=== PATIENT | female | born 1940 | race Caucasian/White ===

== ENCOUNTER 2016-12-12 13:52 | Inpatient (IN) | payer OTHER, MEDICAID ==
[~2016-12-12] VITALS: Ht 149.9 cm; Wt 108.0 kg
--- NOTE | ~2016-12-12 | 2DMMODE ---
[facility] [address] [place] [address] 2 D/M-MODE ECHOCARDIOGRAM Name: EZEKIELRADHA FALLON Room #: 215-P ADM IN M.R.#: [id number] Admission: 12/12/16 Attend Phys: Jian Madrid, Discharge: Date of : 38 Date of Service: 12/13/16 0920 Report #: [id number] THIS REPORT FOR: //name// APPROVED REPORT Study performed: 12/13/2016 08:36:48 EXAM: Comprehensive 2D, Doppler, and color-flow Echocardiogram Patient Location: Echo lab Room #: [facility] Status: routine BSA: 1.99 HR: 82 bpm BP: 152/68 mmHg Rhythm: NSR Other Information Study Quality: Adequate Indications Short of breath, CHF. Hx: CHF, HTN, HLP, morbid obesity 2D Dimensions RVDd: 41.08 mm LVEF(%): 68.25 (>50%) IVSd: 10.95 (7-11mm) LVOT Diam: 20.45 (18-24mm) LVDd: 44.60 mm PWd: 10.89 (7-11mm) Ascending Ao: 34.22 (22-36mm) LVDs: 27.69 (25-40mm) Aortic Root: 32.12 mm Walker's LVEF: 68.25 % Volumes Left Atrial Volume (Systole) Single Plane 4CH: 80.63 mL Single Plane 2CH: 54.34 mL LA ESV Index: 35.00 mL/m2 Aortic Valve AoV Peak Vincenzo.: 1.79 m/s AO Peak Gr.: 12.88 mmHg LVOT Max P.64 mmHg LVOT Max V: 1.38 m/s TERI Vmax: 2.53 cm2 Mitral Valve E/A Ratio: 0.8 MV Decel. Time: 216.01 ms [facility] [place] [address] 2 D/M-MODE ECHOCARDIOGRAM Name: RADHA FALCON Room #: 215-P [facility] IN ..#: [id number] Admission: 12/12/16 Attend Phys: Jian Madrid, Discharge: Date of : 38 Date of Service: 12/13/16 0920 Report #: [id number] E Max Vincenzo.: 1.00 m/s MV A Vincenzo.: 1.22 m/s MV PHT: 62.64 ms IVRT: 50.75 ms Pulmonary Valve PV Peak Vincenzo.: 1.50 m/s PV Peak Gr.: 9.04 mmHg Pulmonary Vein P Vein S: 0.61 m/s P Vein A: 0.32 m/s P Vein D: 0.56 m/s P Vein A Dur.: 133.8 msec P Vein S/D Ratio: 1.09 Tricuspid Valve TR Peak Vincenzo.: 4.09 m/s RAP Estimate: 5.00 mmHg TR Peak Gr.: 66.87 mmHg PA Pressure: 72.00 mmHg Left Ventricle The left ventricle is normal size. There is normal LV segmental wall motion. There is normal left ventricular wall thickness. Left ventricular systolic function is normal. LVEF is 60-65%. Mild diastolic dysfunction is present (impaired relaxation pattern). Right Ventricle Right ventricle is at the upper limits of normal. The right ventricular systolic function is normal. Atria Left atrium is mildly dilated. Right atrium is at the upper limits of normal. Aortic Valve The Aortic valve is mildly sclerotic. Trace aortic regurgitation. There is no aortic valvular stenosis. Mitral Valve The mitral valve is normal in structure. Mild mitral regurgitation. Tricuspid Valve The tricuspid valve is normal in structure. Moderate tricuspid regurgitation. Estimated PAP is 70-75mmHg[place] [address] 2 D/M-MODE ECHOCARDIOGRAM Name: RADHA FALCON Room #: 215-P [facility] IN [facility]#: [id number] Admission: 12/12/16 Attend Phys: Jian Madrid, Discharge: Date of : 38 Date of Service: 12/13/16 0920 Report #: [id number] The pulmonary valve is normal in structure. Mild pulmonic regurgitation. Great Vessels The aortic root is normal in size. The ascending aorta is normal in size. IVC is normal in size and collapses >50% with inspiration. Pericardium There is no pericardial effusion. <Conclusion> The left ventricle is normal size. Left ventricular systolic function is normal. Mild diastolic dysfunction is present (impaired relaxation pattern). Left atrium is mildly dilated. The Aortic valve is mildly sclerotic. Mild mitral regurgitation. Moderate tricuspid regurgitation. Estimated PAP is 70-75mmHg. <ELECTRONICALLY SIGNED> By: Mikey Kimbrough MD 12/13/16919 9 9 Mikey Kimbrough MD /INF
--- NOTE | ~2016-12-12 | HC ---
[facility] [place] [address] CONSULTATION Name: RADHA FALCON Room #: 215-P ADM IN M.R.#: [id number] Admission: 12/12/16 Attend Phys: Jian Madrid MD Discharge: Date of : 38 Report #: [id number] THIS REPORT FOR: //name// CC: Jian Madrid DATE OF SERVICE: 12/12/2016 REASON FOR CONSULTATION: Dyspnea. IMPRESSION: 1. Dyspnea, question etiology. 2. Elevated D-dimer. 3. Hypertension. 4. GERD. 5. Obesity. 6. NIOC. 7. Question history of asthma. PLAN: IV azithromycin. She has multiple allergies. We will continue aerosol therapy. We will try her on CPAP, see if diuresis helps, check VQ venous Dopplers, may check a high-resolution CT chest and may add corticosteroids in the morning. HISTORY OF PRESENT ILLNESS: A 76-year-old female admitted with progressive shortness of breath, cough and some palpitations. She relates this is how she normally feels, however, recently placed on aerosol by Dr. Merrill. Denies chest pain, hemoptysis or hematemesis. PAST MEDICAL HISTORY: ALLERGIES: POLLEN, MOLD, AEROSOLS, MORPHINE, CEPHALEXIN, FENTANYL, LEVAQUIN, MEPERIDINE, QUINOLONES, DIAZEPAM AND SULFA. HOME MEDICATIONS: Included Flonase, Dexilant, Lasix, metformin, potassium, pravastatin, Zoloft, Amitiza, labetalol, Symbicort, spironolactone, hydrocodone, oxygen, ____, Incruse. PAST MEDICAL HISTORY: Includes edema and diastolic heart failure. PAST SURGICAL HISTORY: Include cholecystectomy, hysterectomy, bladder suspension and cataract extraction. FAMILY HISTORY: Coronary artery disease. SOCIAL HISTORY: Negative tobacco. Negative significant ETOH. [facility] [address] [place] [address] CONSULTATION Name: RADHA FALCON Room #: 215-P [facility] IN [facility].#: [id number] Admission: 12/12/16 Attend Phys: Jian Madrid MD Discharge: Date of : 38 Report #: [id number] REVIEW OF SYSTEMS: Include difficulty hearing, shortness of breath, wheeze and phlegm. No hemoptysis and no hematemesis. Positive back pain. No history of DVT or PE. History of daytime somnolence and snoring. PHYSICAL EXAMINATION: VITAL SIGNS: Temperature 98.4, pulse 81, respirations 18 and BP 162/81. EYES: Negative icterus. NECK: Negative JVD. Posterior pharynx crowded. Lungs grossly showed a few crackles, no wheeze or rhonchi. HEART: Regular. ABDOMEN: Bowel sounds present. EXTREMITIES: Shows positive edema and chronic changes and has seen a accounting specialist for these. NEUROLOGIC: Alert and oriented. LABORATORY DATA: D-dimer 0.56. ProBNP 636. White count 11, hemoglobin 10.2, MCV 82 and platelets 246. BUN 16 and creatinine 0.7. SGPT 24. By: [id number] Terese Landon MD /nt
--- NOTE | ~2016-12-12 | HC ---
[facility] [place] [address] CONSULTATION Name: RADHA FALCON Room #: 427-P ADM IN M.R.#: [id number] Admission: 12/12/16 Attend Phys: Jian Madrid MD Discharge: Date of : 38 Report #: [id number] THIS REPORT FOR: //name// CC: Jian Madrid DATE OF SERVICE: 12/18/2016 HISTORY OF PRESENT ILLNESS: The patient is a 76-year-old female admitted with increased shortness of breath. She was noted to have acute diastolic congestive heart failure on chronic heart failure. She has been diagnosed with pulmonary hypertension. She has obesity. She has depression with restarting medications. She has sleep apnea. Pulmonary medicine is following. She does have generalized weakness and debilitation. We are seeing her in rehabilitation medicine consultation. PAST MEDICAL HISTORY: Includes bilateral hip replacements fusion x 3, lumbar plate. Cervical fusion, decompressive laminectomy, hysterectomy, cholecystectomy, hypertension, bladder suspension, spinal stenosis, osteoporosis, depression, anxiety, fibromyalgia, neuropathy, O2 at 2 liters, GERD. PAST SURGICAL HISTORY: As well delineated above. MEDICATIONS: Multiple medications are as listed. HABITS: No history of tobacco or alcohol abuse. FAMILY HISTORY: Noncontributory. SOCIAL HISTORY: Lives in an assisted living facility. Used a 4-wheeled walker, was on 2 liters nasal prong O2. She ambulated to and from the dining area. REVIEW OF SYSTEMS: Did not offer any current complaints of chest pain, shortness of breath or abdominal discomfort. She feels generalized weakness with her hospitalization. PHYSICAL EXAMINATION: GENERAL: Obese 76-year-old white female in no obvious distress. She is on nasal prong O2. VITAL SIGNS: Temperature 97.8, pulse 74, respirations 18, blood pressure 140/64. HEENT: Facies are symmetric. EXTREMITIES: Functional range of motion of the upper extremities, strength is grade 4-/5. Lower extremities, no focal calf swelling, functional range of motion and strength is a grade 4-/5. She is standby assistance with sit to stand. She ambulated 100 feet with a 4-wheeled walker with standby assistance. [address] [address] CONSULTATION Name: RADHA FALCON Room #: 427-P [facility] IN .R.#: [id number] Admission: 12/12/16 Attend Phys: Jian Madrid MD Discharge: Date of : 38 Report #: [id number] Physical therapy indicated that she was safe for home from physical therapy standpoint when medically cleared. The recommendations are for home with home health. ASSESSMENT: A 76-year-old white female with the following problem list: 1. Medical complexity with generalized debilitation. 2. Acute on chronic diastolic congestive heart failure. 3. Pulmonary hypertension. 4. Obesity. 5. Chronic back pain. 6. Depression. 7. Obstructive sleep apnea. 8. Bilateral hip replacements in the past. 9. History of cervical and lumbar surgeries. 10. Fibromyalgia. 11. History of neuropathy. 12. O2 at 2 liters at night, premorbidly. PLAN: She did well in physical therapy yesterday ambulating 100 feet standby assistance with indication that she would be safe for home from physical therapy standpoint when medically cleared. She seems somewhat hesitant in this regard and so occupational therapy input is continuing. Consider a short retirement facility stay versus home with home health care with case management involved. I did not see that she would meet criteria for an acute 5 North inpatient rehabilitation stay. Thank you for asking us to assist in this patient's care. By: [id number] Ishan Garcia MD /[facility]
--- NOTE | ~2016-12-12 | EKG ---
[address] [address] ELECTROCARDIOGRAM REPORT Name: RADHA FALCON Room #: 215- ADM IN M.R.#: [id number] Admission: 12/12/16 Attend Phys: Jian Madrid MD Discharge: Date of : 38 Report #: [id number] THIS REPORT FOR: //name// [facility] Test Date: 2016-12-12 Test Time: 15:53:08 Pat Name: RADHA FALCON Department: Room: 215 P Gender: F [employer]: Dylan PACHECO : 1940 Requested By: Jian Madrid Order Number: [id number] MD: Ray Christian Measurements Intervals [place] Rate: 78 P: 44 AR: 170 QRS: 43 QRSD: 88 T: 42 QT: 375 QTc: 428 Interpretive Statements Sinus rhythm Ventricular premature complex Compared to ECG 11/16/2014 08:24:49 Ventricular premature complex(es) now present Electronically Signed On 12-13-2016 9:06:10 CDT by Ray Christian [email or web address] <ELECTRONICALLY SIGNED> By: Ray Christian MD, [facility] 12/13/16 0906 [id number] [id number] Ray Christian MD, [facility] /EPI
[~2016-12-12 13:52] MED LIST: ACETAMINOPHEN325 M1 PO; ACETAMINOPHEN650 M5 PO; ACIDOPHILUS1 EAC3 PO; ACIDOPHILUS1 EACH PO; ADULT WAL-100 MG/5 M PO; ALAVERT10 MG PO; ALDACTONE50 MG PO; ALL DAY ALLERGY10 M2 PO; ALPRAZOLAM PO; ALPRAZOLAM1 M1 PO; AMITIZA 24 MCG24 MC1; AMITIZA 24 MCG24 MC1 PO; ANTI ITCH; ANUSOL-HC21 GM; APAP500 PO; B12INJ; BIOTENE DRY MO237 ML; BISAC-EVAC10 MG; BISAC-EVAC10 MG RECTAL; BISACODYL SUPP10 MG RE; CEFDINIR300 MG PO; CELEBREX 200 M200 MG PO; CETAPHIL MOIST473 ML; CETAPHIL TP; CETAPHIL473 ML; CHILDREN'S ALLE10 MG PO; CITRATE OF MAG296 ML; COLACE 100 MG100 MG PO; COLACE100 MG PO; DENAVIR1.5 GM PO; DESYREL100 MG PO; DESYREL50 MG PO; DOCUSATE SODIU100 MG PO; ERYPED 200200 MG/51 PO; FISH OIL 1,0001 EAC5 PO; FISHOIL PO; FLONASE 0.05%50 MCG NASAL; FLONASE16 GM NS; FUROSEMIDE 40 M40 M1 PO; FUROSEMIDE 80 M80 MG PO; GENTEAL GEL DRO15 ML OP; GENTEAL GEL DRO15 ML OPHTHALMIC; GENTEAL PM OIN3.5 GM; GENTEAL PM OIN3.5 GM OP; GLYCOLAX POWDER17 G1 PO; HYDRALAZINE 2525 M1 PO; HYDROCODON-ACE1 EAC5 PO; HYDROCODON-ACE1 EAC7 PO; IBUPROFEN 200200 M1 PO; IBUPROFEN200 M2 PO; K-DUR 20 MEQ T20 MEQ PO; KLOR-CON 1010 MEQ PO; LABETALOL 100100 MG PO; LANSOPRAZOLE30 MG PO; LASIX 40 MG TAB40 M1; LASIX 80 MG TAB80 M1 PO; LAXATIVE5 M1 PO; LIDOCAINE 22 %/30 GM; LIDOCAINE 22 %/30 GM MM; LINZESS290 MCG PO; LISINOPRIL10 MG PO; LYRICA100 MG PO; MAALOX SUSPENS148 ML PO; MAALOX525 MG/15 PO; METHADONE HCL5 MG PO; MIRALAX255 GM; NASAL SPRAY30 M3; NORCO 5-325 TA1 EACH PO; OCEAN45 ML NASAL; OSCIMIN0.125 MG PO; PHENERGAN 25 MG25 M1 PO; POTASSIUM20 PO; PRAVASTATIN SOD20 MG PO; PREVACID 30MG C30 M1 PO; PROAIR HFA8.5 GM; PROAIR HFA8.5 GM INH; PROBIOTIC1 EACH PO; PYRIDIUM100 MG PO; RESTASIS1 EACH OP; SALINE360 M1; SENNA CONCENTR8.6 MG PO; SENNA LAXATIVE25 MG PO; SERTRALINE HCL100 MG PO; SIMETHICON CHEW80 M1 PO; SIMVASTATIN40 MG PO; SYMBICORT160 MCG/4. INH; TESSALON PERLE100 MG PO; THERA-M CAPLET1 EAC1 PO; THERA-M CAPLET1 EACH PO; TRANDATE 200 M200 M1 PO; TRAZODONE 150150 M1 PO; TRAZODONE PO; TUCKS MEDICATE1 EAC1; TUCKS1 EAC1 TOP; TYLENOL EX-STR500 M2 PO; VITAMIN D 5050000 I1 PO; XANAX 0.5 MG0.5 M1 PO; ZESTRIL10 MG PO; ZOLOFT100 MG; ZYRTEC 10 MG TA10 MG PO; [UNRECOGNIZED DRUG - OTHER] PO
[2016-12-12 15:00] VITALS: BP 151/70
[2016-12-12 15:20] LABS: HEMATOCRIT 31.2 % (37.0-47.0); HEMOGLOBIN 10.2 gm/dL (12.0-15.0); MCH 26.8 pg (26.0-34.0); MCHC 32.6 g/dL (28.0-37.0); MCV 82.4 fL (80.0-100.0); RBC 3.78 mil/uL (4.20-5.00)
[2016-12-12 15:44] LABS: ALBUMIN 3.9 g/dL (3.4-5.0); ALKALINE PHOSPHATASE 76 U/L (46-116); ANION GAP 3 mmol/L (7-16); BUN 16 mg/dL (7-18); CALCIUM 9.7 mg/dL (8.5-10.1); CHLORIDE 99 mmol/L (98-107); CO2 33 mmol/L (21-32); CREATININE 0.7 mg/dL (0.6-1.0); GLUCOSE 103 mg/dL (74-106); POTASSIUM 4.4 mmol/L (3.5-5.1); SGOT 15 U/L (15-37); SGPT 24 U/L (30-65); SODIUM 135 mmol/L (136-145); TOTAL BILIRUBIN 0.4 mg/dL (<0.1-1.0); TOTAL PROTEIN 7.4 g/dL (6.4-8.2); TROPONIN-I < 0.04 ng/mL (<0.04-0.07)
[2016-12-12 20:15] VITALS: BP 162/81
[2016-12-12] MEDS ORDERED: DEXILANT60 MG PO (20:21)
[2016-12-12] MEDS ORDERED: GAS RELIEF80 MG PO (20:22)
[2016-12-12] MEDS ORDERED: GENTEAL SEVERE10 GM OPHTHALMIC (20:24)
[2016-12-12] MEDS ORDERED: RESTASIS1 EACH OPHTHALMIC (20:27)
[2016-12-12] MEDS ORDERED: SYMBICORT160 MCG/4. INH (20:29)
[2016-12-12] MEDS ORDERED: ACIDOPHILUS1 EAC4 PO (20:30)
[2016-12-12] MEDS ORDERED: XANAX1 MG PO (20:34)
[2016-12-12] MEDS ORDERED: XANAX 0.5 MG0.5 MG PO (20:36)
[2016-12-12] MEDS ORDERED: AMITIZA 24 MCG24 MCG PO (20:37)
[2016-12-12] MEDS ORDERED: NORVASC5 MG PO (20:38)
[2016-12-12] MEDS ORDERED: B12INJ IM (20:40)
[2016-12-12] MEDS ORDERED: LASIX 40 MG TAB40 M2 PO (20:42)
[2016-12-12] MEDS ORDERED: HYDROCODONE-AP1 EAC6 PO (20:44)
[2016-12-12] MEDS ORDERED: METFORMIN HCL500 MG PO (20:46)
[2016-12-12] MEDS ORDERED: MIRALAX17 GM PO (20:47)
[2016-12-12] MEDS ORDERED: DOXYCYCLINE 10100 MG PO (20:53)
[2016-12-12] MEDS ORDERED: NEO-POLYCIN EY3.5 GM OPHTHALMIC (20:55)
[2016-12-12] MEDS ORDERED: NEOMYCIN-POLY-7.5 ML OPHTHALMIC (20:56)
[2016-12-13 04:01] VITALS: BP 155/83
[2016-12-13 07:16] VITALS: BP 152/68
[2016-12-13 12:19] VITALS: BP 144/79
[2016-12-13 16:50] VITALS: BP 162/68
[2016-12-13 19:37] VITALS: BP 136/66
[2016-12-14 17:05] VITALS: BP 133/70
[2016-12-14 19:39] VITALS: BP 149/69
[2016-12-15 03:34] VITALS: BP 147/79
[2016-12-15 08:40] VITALS: BP 146/71
[2016-12-15 13:34] LABS: HEMATOCRIT 38.6 % (37.0-47.0); MCH 26.6 pg (26.0-34.0); MCHC 31.9 g/dL (28.0-37.0); MCV 83.3 fL (80.0-100.0); RBC 4.64 mil/uL (4.20-5.00)
[2016-12-15 13:38] LABS: HEMOGLOBIN 12.3 gm/dL (12.0-15.0)
[2016-12-15 13:43] LABS: CALCIUM 10.1 mg/dL (8.5-10.1); CREATININE 0.8 mg/dL (0.6-1.0); POTASSIUM 4.1 mmol/L (3.5-5.1)
[2016-12-15 17:29] VITALS: BP 140/100
[2016-12-15 19:35] VITALS: BP 131/68
[2016-12-16 07:43] VITALS: BP 147/90
[2016-12-16 17:34] VITALS: BP 169/89
[2016-12-16 21:30] VITALS: BP 108/44
[2016-12-17 04:30] VITALS: BP 162/83
[2016-12-17 08:00] VITALS: BP 166/93
[2016-12-17 16:00] VITALS: BP 125/57
[2016-12-17 16:16] LABS: CALCIUM 9.7 mg/dL (8.5-10.1); CREATININE 0.8 mg/dL (0.6-1.0); MAGNESIUM 1.8 mg/dL (1.8-2.4); POTASSIUM 3.3 mmol/L (3.5-5.1)
[2016-12-17 21:01] VITALS: BP 148/67
[2016-12-18 05:42] VITALS: BP 138/78
[2016-12-18 08:00] VITALS: BP 148/64
[2016-12-18 13:59] LABS: CALCIUM 9.6 mg/dL (8.5-10.1); CREATININE 0.7 mg/dL (0.6-1.0); POTASSIUM 3.5 mmol/L (3.5-5.1)
[2016-12-18 16:00] VITALS: BP 119/61
[2016-12-18 20:00] VITALS: BP 121/62
[2016-12-19 05:30] VITALS: BP 146/73
[2016-12-19 08:16] VITALS: BP 150/70
[2016-12-19 10:18] VITALS: BP 150/70
== END 2016-12-19 14:35 | DRG 291 ==
LOC: 4E 13:52 → 2N 13:52 → 4E 12-14 17:09
PROVIDERS: Family Medicine; Internal Medicine Pulmonary Disease
DX: I11.0 Hypertensive heart disease with heart failure (principal); J96.01 Acute respiratory failure with hypoxia; Z68.42 Body mass index [BMI] 45.0-49.9, adult; Z99.81 Dependence on supplemental oxygen; Z66 Do not resuscitate; I50.33 Acute on chronic diastolic (congestive) heart failure; E66.9 Obesity, unspecified; K21.9 Gastro-esophageal reflux disease without esophagitis; G62.9 Polyneuropathy, unspecified; M79.7 Fibromyalgia; J44.9 Chronic obstructive pulmonary disease, unspecified; I49.3 Ventricular premature depolarization; G47.33 Obstructive sleep apnea (adult) (pediatric); I27.20 Pulmonary hypertension, unspecified; M54.9 Dorsalgia, unspecified; G89.4 Chronic pain syndrome; F32.9 Major depressive disorder, single episode, unspecified; F41.9 Anxiety disorder, unspecified; M19.90 Unspecified osteoarthritis, unspecified site; M81.0 Age-related osteoporosis without current pathological fracture; E78.5 Hyperlipidemia, unspecified; Z96.643 Presence of artificial hip joint, bilateral; Z98.1 Arthrodesis status; Z90.49 Acquired absence of other specified parts of digestive tract; Z90.710 Acquired absence of both cervix and uterus; Z98.42 Cataract extraction status, left eye; Z98.41 Cataract extraction status, right eye; Z88.1 Allergy status to other antibiotic agents; Z79.899 Other long term (current) drug therapy; Z79.84 Long term (current) use of oral hypoglycemic drugs; Z91.041 Radiographic dye allergy status; Z88.5 Allergy status to narcotic agent; Z88.2 Allergy status to sulfonamides; Z88.8 Allergy status to other drugs, medicaments and biological substances; Z91.048 Other nonmedicinal substance allergy status; Z82.49 Family history of ischemic heart disease and other diseases of the circulatory system
CPT/HCPCS: 10081; 10783